=== PATIENT | male | born 1965 ===

== ENCOUNTER 2017-08-27 18:09 | Emergency (ER) | payer SELFPAY ==
[2017-08-27 18:27] VITALS: RESP 18; TEMP 98.8; BMI 31.3
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
[2017-08-27] MEDS ORDERED: TDAP Vaccine 0.5 mL Syr IM ONE (20:20)
[2017-08-27 21:03] LABS: HEMOGLOBIN 14.9 g/dL (14.0-18.0); MEAN CELL VOLUME 92.2 fl (80.0-105.0); MEAN CORPUSCULAR HEMOGLOBIN 32.4 pg (25.0-35.0); MEAN CORPUSCULAR HGB CONC 35.1 g/dl (31.0-37.0); MEAN PLATELET VOLUME 8.7 fl (7.0-11.0); RBC 4.6 10^6/uL (3.5-6.1); RED CELL DISTRIBUTION WIDTH 13.8 % (11.5-14.5); WHITE BLOOD COUNT 7.5 10^3/ul (4.5-11.0)
[2017-08-27 21:11] LABS: ALB/GLOB RATIO 1.3 (1.1-1.8); ALBUMIN 4.3 g/dL (3.0-4.8); ALT/SGPT 81 U/L (7-56); AST/SGOT 101 U/L (17-59); BLOOD UREA NITROGEN 8 mg/dL (7-21); CALCIUM 8.7 mg/dL (8.4-10.5); GFR AFRICAN-AMERICAN > 60; GFR NON-AFRICAN AMERICAN > 60
[2017-08-27 22:34] VITALS: BP 126/87; PULSE 98; O2SAT 100
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
== END 2017-08-27 22:12 ==
LOC: ED 18:09
DX: S01.81XA Laceration without foreign body of other part of head, initial encounter (principal); Y09 Assault by unspecified means; Z23 Encounter for immunization
CPT/HCPCS: 12011; 70450; 80053; 85027; 90471; 90715; 99282; G0480

== ENCOUNTER 2018-06-08 02:38 | Inpatient (IN) | payer MEDICAID, OTHER | END 2018-06-10 12:10 | disposition home or self-care (01) | LOC: ED 02:38 → ERH 04:16 → 3RNO 05:04 ==